=== PATIENT | male | born 1990 | race Caucasian/White ===

== ENCOUNTER 2016-07-07 07:43 | Emergency (ER) | payer OTHER ==
[~2016-07-07] VITALS: Ht 182.9 cm; Wt 129.9 kg
[2016-07-07] MEDS ORDERED: MOTRIN400 MG PO (10:40)
[2016-07-07] MEDS ORDERED: VALIUM5 MG PO (10:40)
[2016-07-07 10:55] VITALS: BP 132/66
== END 2016-07-07 11:21 | disposition home or self-care (01) ==
LOC: EME 07:43
DX: S29.012A Strain of muscle and tendon of back wall of thorax, initial encounter (principal); X58.XXXA Exposure to other specified factors, initial encounter; F17.200 Nicotine dependence, unspecified, uncomplicated
CPT/HCPCS: 71020; 99281; 99283